=== PATIENT | female | born 1965 | race Caucasian/White ===

== ENCOUNTER 2017-09-04 07:56 | Day surgery (SDC) | payer BC ==
[2017-09-04 08:19] VITALS: BMI 36.3
[2017-09-04] MEDS ORDERED: Lactated Ringer's 1,000 ML IV ONE (09:16)
[2017-09-04] MEDS ORDERED: Succinylcholine Chloride 20 mg/ml Syr (5 ml) IV ONE (09:22)
[2017-09-04] MEDS ORDERED: Rocuronium 10 mg/ml (5 ml) ONE (09:22)
[2017-09-04] MEDS ORDERED: Propofol 10 mg/ml Inj (20 ML) ONE (09:22)
[2017-09-04] MEDS ORDERED: Lidocaine Hydrochloride 5 ML INJ ONE (09:43)
[2017-09-04 10:12] VITALS: TEMP 96.9
[2017-09-04] MEDS ORDERED: Morphine 4 MG/ML VIAL IV ONE ×2 (10:24→11:17)
[2017-09-04 11:39] VITALS: O2SAT 100
[2017-09-04 11:54] VITALS: BP 114/69; PULSE 71; RESP 15
== END 2017-09-04 11:53 | disposition home or self-care (01) ==
LOC: C.ENDO 07:56
PROVIDERS: ATTEND Internal Medicine
DX: K22.9 Disease of esophagus, unspecified (principal); K29.70 Gastritis, unspecified, without bleeding
CPT/HCPCS: 43251; 88305; J2001; J2270; J2405; J2704; J3010; J7120

== ENCOUNTER 2018-01-13 06:25 | Day surgery (SDC) | payer BC ==
[2018-01-13] MEDS ORDERED: Propofol 10 mg/ml Inj (20 ML) ONE ×2 (08:17→08:28)
--- NOTE | 2018-01-13 08:19 | CP.SDSHP ---
Same Day Surgery H & P - History Proposed Procedure: egd Pre-Op Diagnosis: epigastric pain'. heartburn. h/o granular cell tumor of esophagus - Previous Medical/Surgical History Cardiac: Hypertension Pulmonary: Asthma, Other (VARUN, Severe gerd) Endocrine/Metabolic: Obesity Previous Surgical History: EMR of esophageal tumor 09/21 - Allergies Allergies: Allergies Penicillins Allergy (Severe, Verified 08/17/17 09:34) RASH Sulfa (Sulfonamide Antibiotics) Allergy (Intermediate, Verified 08/17/17 09:35) RASH swelling sulfamoxole Allergy (Intermediate, Verified 08/17/17 09:35) RASH swelling - Physical Exam Vital Signs: Vital Signs 01/13/18 06:38 Temperature 97 F L Pulse Rate 76 Respiratory 19 Rate Blood Pressure 136/85 O2 Sat by Pulse 97 Oximetry Mental Status: Alert & Oriented x3 Neuro: WNL Heart: WNL Lungs: WNL GI: WNL - Impression Impression: heartburn. epigastric pain. h/o granular cell tumor of esophagus Pt. Evaluated Today:Candidate for Anesthesia & Procedure: Yes - Date & Time Date: 01/13/18 Time: 08:19 Short Stay Discharge - Short Stay Discharge Admitting Diagnosis/Reason for Visit: EPIGASTRIC ABDOMINAL TENDERNESS, HEART, GERD Disposition: HOME/ ROUTINE
[2018-01-13 08:47] VITALS: TEMP 98
[2018-01-13 08:54] VITALS: O2SAT 100
[2018-01-13 09:12] VITALS: RESP 17
[2018-01-13 09:45] VITALS: BP 118/67; PULSE 77
== END 2018-01-13 09:30 | disposition home or self-care (01) ==
LOC: C.ENDO 06:25
PROVIDERS: ATTEND Internal Medicine Gastroenterology
DX: K29.50 Unspecified chronic gastritis without bleeding (principal); B96.81 Helicobacter pylori [H. pylori] as the cause of diseases classified elsewhere; K21.0 Gastro-esophageal reflux disease with esophagitis; R10.13 Epigastric pain; I10 Essential (primary) hypertension; J44.9 Chronic obstructive pulmonary disease, unspecified; G47.33 Obstructive sleep apnea (adult) (pediatric); F17.200 Nicotine dependence, unspecified, uncomplicated
CPT/HCPCS: 43239; 88305; 88342; J2704